=== PATIENT | male | born 2000 | race Caucasian/White ===

== ENCOUNTER 2021-01-13 10:46 | Emergency (ER) | payer SELFPAY ==
[~2021-01-13] VITALS: Ht 190 cm; Wt 81.0 kg
[2021-01-13 10:50] VITALS: BP 148/86
[2021-01-13] MEDS ORDERED: IBUP-1780 PO (11:07)
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
== END 2021-01-13 11:12 | disposition home or self-care (01) ==
LOC: ER FS 10:49
DX: S06.0X1A Concussion with loss of consciousness of 30 minutes or less, initial encounter (principal); S00.03XA Contusion of scalp, initial encounter; F17.290 Nicotine dependence, other tobacco product, uncomplicated; Y08.02XA Assault by strike by baseball bat, initial encounter
CPT/HCPCS: 99282

== ENCOUNTER 2022-01-19 09:57 | Day surgery (SDC) | payer SELFPAY ==
[~2022-01-19] VITALS: Ht 188 cm; Wt 100.9 kg
[2022-01-19] VITALS (15 sets, daily range): BP systolic 116–158; BP diastolic 65–92
[~2022-01-19 09:57] MED LIST: IBUP-1780 PO
[2022-01-19 10:18] LABS: BASOPHILS # (AUTO) 0.1 10^3/uL (0.0-0.1); BASOPHILS % (AUTO) 0 % (0-10); EOSINOPHILS # (AUTO) 0.2 10^3/uL (0.0-0.3); EOSINOPHILS % (AUTO) 1 % (0-10); HEMATOCRIT 44 % (40-54); HEMOGLOBIN 15.9 g/dL (13.3-17.7); LYMPHOCYTES # (AUTO) 3.6 10^3/uL (1.0-4.0); LYMPHOCYTES % (AUTO) 22 % (12-44); MEAN CORPUSCULAR HEMOGLOBIN 31 pg (25-34); MEAN CORPUSCULAR HGB CONC 36 g/dL (32-36); MEAN CORPUSCULAR VOLUME 85 fL (80-99); MEAN PLATELET VOLUME 9.8 fL (9.0-12.2); MONOCYTES # (AUTO) 1.5 10^3/uL (0.0-1.0); MONOCYTES % (AUTO) 9 % (0-12); NEUTROPHILS # (AUTO) 11.3 10^3/uL (1.8-7.8); NEUTROPHILS % (AUTO) 67 % (42-75); PLATELET COUNT 307 10^3/uL (130-400); WHITE BLOOD COUNT 16.7 10^3/uL (4.3-11.0)
[2022-01-19] MEDS ORDERED: FAMOTIDINE 20MG/2ML IV (PEPCID) IVP ONE (10:30)
[2022-01-19] MEDS ORDERED: ONDANSETRON 4 MG/2 ML (SDV) Z0FRAN IVP ONE (10:30)
[2022-01-19] MEDS ORDERED: ANTACID SUSP 30 ML UDC (MYLANTA) PO ONE (10:30)
[2022-01-19 10:47] LABS: SODIUM 139 MMOL/L (135-145)
[2022-01-19 10:48] LABS: ALANINE AMINOTRANSFERASE 52 U/L (0-55); ALBUMIN 4.9 GM/DL (3.2-4.5); ALKALINE PHOSPHATASE 111 U/L (40-136); BILIRUBIN,TOTAL 0.7 MG/DL (0.1-1.0); BUN/CREATININE RATIO 12; CALCIUM 9.6 MG/DL (8.5-10.1); CARBON DIOXIDE 25 MMOL/L (21-32); CHLORIDE 102 MMOL/L (98-107); CREATININE SERUM 0.93 MG/DL (0.60-1.30); GFR ESTIMATED 119; GLUCOSE 102 MG/DL (70-105); LIPASE 12 U/L (8-78)
[2022-01-19 10:49] LABS: TOTAL PROTEIN 8.1 GM/DL (6.4-8.2)
[2022-01-19 11:04] LABS: BAND NEUTROPHILS 3 %; BASOPHILS % (MANUAL) 1 %; EOSINOPHILS % (MANUAL) 2 %; LYMPHOCYTES % (MANUAL) 17 %; MONOCYTES % (MANUAL) 3 %; NEUTROPHILS % (MANUAL) 69 %; REACTIVE LYMPHOCYTES 5 %
[2022-01-19 11:05] LABS: PLATELET ESTIMATE NORMAL; RBC MORPH NORMAL
[2022-01-19] MEDS ORDERED: NS 100 ML (IVPB) BAG IV ONE (11:15)
[2022-01-19] MEDS ORDERED: IOHEXOL 350 MG/ML 100 ML (OMNIPAQUE 350) VIAL IV ONE (11:15)
[2022-01-19] MEDS ORDERED: CATHETER FLUSH 10 ML SYR IV PRN (11:15)
[2022-01-19] MEDS ORDERED: HOLD METFORMIN - RECEIVED CONTRAST 20 ML VIAL IV SCH (11:15)
[2022-01-19] MEDS ORDERED: morphine INJ 10 MG/ML 1ML (SYR OR VIAL) IVP STA (11:21)
--- NOTE | 2022-01-19 11:35 | Diagnostic Imaging Report ---
PROCEDURE: CT abdomen and pelvis with contrast. TECHNIQUE: Multiple contiguous axial images were obtained through the abdomen and pelvis after administration of intravenous contrast. Auto Exposure Controls were utilized during the CT exam to meet ALARA standards for radiation dose reduction. All CT scans use one or more of the following dose optimizing techniques: automated exposure control, MA and/or KvP adjustment based on patient size and exam type or iterative reconstruction. INDICATION: Epigastric pain last night. Intermittent constipation. Prior hernia repair. EXAMINATION: CT abdomen and pelvis with contrast 01/19/2022 FINDINGS: There is minimal atelectasis in the medial aspect of the right middle lobe. Remaining visualized lung bases clear. There is diffuse fatty infiltration throughout the liver which is otherwise unremarkable. The spleen appears normal. The pancreas, adrenal glands and gallbladder unremarkable. The appendix is diffusely enlarged measuring up to 15 mm in thickness with surrounding fat stranding consistent with acute appendicitis. There is no adjacent free air or abscess. The colon is diffusely decompressed with wall thickening and fatty change within the wall consistent with chronic colitis. There is no ascites or free air. There is no acute osseous abnormality. IMPRESSION: 1. Findings consistent with acute appendicitis without evidence for perforation. 2. Changes consistent with chronic colitis. 3. Hepatic steatosis. Dictated by: Dictated on workstation # [id number]
--- NOTE | 2022-01-19 12:12 | ED Abdominal Pain ---
General Chief Complaint: Abdominal/GI Problems Stated Complaint: EPIGASTRIC PAIN; NAUSEA Nursing Triage Note: -pt. reports epigastric sharp pain. onset last noc. denies n/v. Source of Information: Patient Exam Limitations: No Limitations History of Present Illness Date Seen by Provider: Jan 19, 2022 Time Seen by Provider: 10:00 Initial Comments Patient is a 21-year-old male who presents with intermittent abdominal pain for the past 30 days with most recent episode beginning last night. Patient reports nausea without vomiting. He reports constipation. Abdominal pain is currently epigastric to periumbilical and is rated moderate to severe. It is worse with palpation. Patient reports loss of appetite he has not had anything to eat since bedtime last night. He denies fever chills, sweats. Flank pain, urinary frequency urgency dysuria, diarrhea. No history of kidney stones. Previos inguinal hernia repair. Patient smokes half pack daily and drinks 6-12 beers daily. Timing/Duration: 12-24 Hours Severity/Quality: Moderate Location: Other Radiation: Other Activities at Onset: Other Modifying Factors: Improves With Other Allergies and Home Medications Allergies Coded Allergies: No Known Allergies (Verified Allergy, Unknown, 01/19/22) Patient Home Medication List Home Medication List Reviewed: Yes Ibuprofen (Ibuprofen) 800 Mg Tablet, 800 MG PO Q8H PRN for PAIN Prescribed by: KAREEM DIALLO on 01/13/21 1107 Review of Systems Review of Systems Constitutional: no symptoms reported, see HPI EENTM: See HPI Respiratory: See HPI Cardiovascular: See HPI Gastrointestinal: See HPI Genitourinary: See HPI Musculoskeletal: see HPI Skin: see HPI Psychiatric/Neurological: See HPI Endocrine: See HPI Hematologic/Lymphatic: See HPI All Other Systems Reviewed Negative Unless Noted: Yes Past Pewraip-Xufsli-Jjeotr Hx Patient Social History Tobacco Use?: No Seasonal Allergies Seasonal Allergies: No Past Medical History Surgeries: Yes Appendectomy, Ear Surgery, Eye Surgery, Orthopedic Respiratory: No Cardiac: No Neurological: No Genitourinary: No Gastrointestinal: No Musculoskeletal: No Endocrine: No HEENT: No Cancer: No Psychosocial: No Integumentary: No Blood Disorders: No Physical Exam Vital Signs Vital Signs - First Documented 01/19/22 01/19/22 10:00 11:24 Temp 36.2 Pulse 74 Resp 18 B/P (MAP) 157/96 (116) Pulse Ox 99 O2 Delivery Room Air Capillary Refill : Less Than 3 Seconds Height/Weight/BMI Height: '" Weight: lbs. oz. kg; 28.00 BMI Method: General Appearance: WD/WN, no apparent distress HEENT: PERRL/EOMI, normal ENT inspection, pharynx normal Neck: non-tender, full range of motion Respiratory: lungs clear Cardiovascular: normal peripheral pulses, regular rate, rhythm Gastrointestinal: soft, tenderness (Epigastric/periumbilical pain/tenderness.), spleenomegaly Extremities: normal range of motion, non-tender Back: normal inspection, no CVA tenderness Neurologic/Psychiatric: alert, oriented x 3 Skin: normal color Progress/Results/Core Measures Results/Orders Lab Results Laboratory Tests Test 01/19/22 10:09 Range/Units White Blood Count 16.7 H 4.3-11.0 10^3/uL Red Blood Count 5.15 4.30-5.52 10^6/uL Hemoglobin 15.9 13.3-17.7 g/dL Hematocrit 44 40-54 % Mean Corpuscular Volume 85 80-99 fL Mean Corpuscular Hemoglobin 31 25-34 pg Mean Corpuscular Hemoglobin Concent 36 32-36 g/dL Red Cell Distribution Width 11.7 10.0-14.5 % Platelet Count 307 130-400 10^3/uL Mean Platelet Volume 9.8 9.0-12.2 fL Immature Granulocyte % (Auto) 0 % Neutrophils (%) (Auto) 67 42-75 % Lymphocytes (%) (Auto) 22 12-44 % Monocytes (%) (Auto) 9 0-12 % Eosinophils (%) (Auto) 1 0-10 % Basophils (%) (Auto) 0 0-10 % Neutrophils # (Auto) 11.3 H 1.8-7.8 10^3/uL Lymphocytes # (Auto) 3.6 1.0-4.0 10^3/uL Monocytes # (Auto) 1.5 H 0.0-1.0 10^3/uL Eosinophils # (Auto) 0.2 0.0-0.3 10^3/uL Basophils # (Auto) 0.1 0.0-0.1 10^3/uL Immature Granulocyte # (Auto) 0.1 0.0-0.1 10^3/uL Neutrophils % (Manual) 69 % Lymphocytes % (Manual) 17 % Monocytes % (Manual) 3 % Eosinophils % (Manual) 2 % Basophils % (Manual) 1 % Band Neutrophils 3 % Reactive Lymphocytes 5 % Platelet Estimate NORMAL Blood Morphology Comment NORMAL Sodium Level 139 135-145 MMOL/L Potassium Level 4.0 3.6-5.0 MMOL/L Chloride Level 102 98-107 MMOL/L Carbon Dioxide Level 25 21-32 MMOL/L Anion Gap 12 5-14 MMOL/L Blood Urea Nitrogen 11 7-18 MG/DL Creatinine 0.93 0.60-1.30 MG/DL Estimat Glomerular Filtration Rate 119 BUN/Creatinine Ratio 12 Glucose Level 102 70-105 MG/DL Calcium Level 9.6 8.5-10.1 MG/DL Corrected Calcium 8.5-10.1 MG/DL Total Bilirubin 0.7 0.1-1.0 MG/DL Aspartate Amino Transf (AST/SGOT) 26 5-34 U/L Alanine Aminotransferase (ALT/SGPT) 52 0-55 U/L Alkaline Phosphatase 111 40-136 U/L Total Protein 8.1 6.4-8.2 GM/DL Albumin 4.9 H 3.2-4.5 GM/DL Lipase 12 8-78 U/L My Orders Orders - FRANSISCO CASTILLO DO Cbc With Automated Diff (01/19/22 10:09) Comprehensive Metabolic Panel (01/19/22 10:09) Lipase (01/19/22 10:09) Ua Culture If Indicated (01/19/22 10:09) Famotidine Injection (Pepcid Injection) (01/19/22 10:30) Ondansetron Injection (Zofran Injectio (01/19/22 10:30) Antacid Suspension (Mylanta Suspension (01/19/22 10:30) Manual Differential (01/19/22 10:09) Ct Abdomen/Pelvis W (01/19/22 11:00) Iohexol Injection (Omnipaque 350 Mg/Ml 1 (01/19/22 11:15) Received Contrast (Hold Metformin- Contr (01/19/22 11:15) Sodium Chloride Flush (Catheter Flush Sy (01/19/22 11:15) Ns (Ivpb) (Sodium Chloride 0.9% Ivpb Bag (01/19/22 11:15) Morphine Injection (Morphine Injection (01/19/22 11:21) Ketorolac Injection (Toradol Injection) (01/19/22 12:15) Medications Given in ED Current Medications Medications Dose Ordered Sig/Richard Route Start Time Stop Time Status Last Admin Dose Admin Al Hydrox/Mg Hydrox/Simethicone 30 ml ONCE ONCE PO 01/19/22 10:30 01/19/22 10:31 DC 01/19/22 10:30 30 ML Famotidine 20 mg ONCE ONCE IVP 01/19/22 10:30 01/19/22 10:31 DC 01/19/22 10:30 20 MG Iohexol 100 ml ONCE ONCE IV 01/19/22 11:15 01/19/22 11:16 DC 01/19/22 11:17 100 ML Ondansetron HCl 4 mg ONCE ONCE IVP 01/19/22 10:30 01/19/22 10:31 DC 01/19/22 10:30 4 MG Sodium Chloride 10 ml NEEDED PRN IV 01/19/22 11:15 01/19/22 11:17 10 ML Sodium Chloride 100 ml ONCE ONCE IV 01/19/22 11:15 01/19/22 11:16 DC 01/19/22 11:17 100 ML Vital Signs/I&O 01/19/22 01/19/22 01/19/22 10:00 11:24 12:02 Temp 36.2 36.2 36.2 Pulse 74 75 74 Resp 18 18 18 B/P (MAP) 157/96 (116) 144/93 148/86 Pulse Ox 99 O2 Delivery Room Air Room Air Blood Pressure Mean: 106 Departure Communication (Admissions) CT abdomen pelvis: Chronic colitis with acute appendicitis Case discussion including CT and labs reviewed in detail with Dr. Cullen on-call for general surgery who requests the patient be discharged from the emergency department and drive straight to the [facility] outpatient surgical center. No antibiotics to be given at this time. I did offer ambulance transfer which the patient declined. Patient is instructed not to eat or drink and his significant other confirms that she is going to drive directly to the surgical center Impression Primary Impression: Acute appendicitis Additional Impression: Chronic colitis Disposition: 01 HOME, SELF-CARE Condition: Unchanged Departure-Patient Inst. Decision time for Depature: 12:14 Referrals: ROSITA SOLORIO MD (PCP) Primary Care Physician Patient Instructions: Appendicitis in Adults Add. Discharge Instructions: You were evaluated in the emergency department and diagnosed with appendicitis. This requires prompt surgical care otherwise you are at risk of perforation, abscess and other surgery complications. It is important that you drive directly to the outpatient surgical center at [facility] where Dr Cullen will perform surgery this afternoon. Do not stop to eat or drink along the way. If you develop difficulty with transportation, call 911 request transfer to [facility] All discharge instructions reviewed with patient and/or family. Voiced understanding. FRANSISCO CASTILLO DO Jan 19, 2022 12:12
[2022-01-19] MEDS ORDERED: KETOROLAC 30 MG/ML VIAL IVP ONE (12:15)
[2022-01-19] MEDS: LACTATED RINGERS 1,000 ML IV PRN ×2 (14:10→15:11)
[2022-01-19] MEDS ORDERED: BUP/EPI 0.5% 1:200,000 (SENSORCAINE) 30 ML VIAL ONE (14:12)
[2022-01-19] MEDS ORDERED: fentaNYL INJ 100 MCG/2 ML AMP ONE (14:29)
[2022-01-19] MEDS ORDERED: ONDANSETRON 4 MG/2 ML (SDV) Z0FRAN ONE (14:29)
[2022-01-19] MEDS ORDERED: NEOSTIGMINE 3 MG/3 ML VIAL ONE (14:29)
[2022-01-19] MEDS ORDERED: LIDOCAINE PF 2% 5 ML (XYLOCAINE) VIAL ONE (14:29)
[2022-01-19] MEDS ORDERED: MIDAZOLAM 2 MG/2 ML (VERSED) VIAL ONE (14:29)
[2022-01-19] MEDS ORDERED: ROCURONIUM 50 MG/5 ML (ZEMURON) VIAL IV ONE (14:29)
[2022-01-19] MEDS ORDERED: GLYCOPYRROLATE 0.2 MG/ML (ROBINUL) 2 ML VIAL ONE (14:29)
[2022-01-19] MEDS ORDERED: proPOfol 200 MG/20 ML (DIPRIVAN) VIAL IV ONE (14:29)
[2022-01-19] MEDS ORDERED: ceFAZolin 2 GM/50 ML (PRE-MIXED) IV ONE (14:30)
--- NOTE | 2022-01-19 14:37 | Consultation - Surgery ---
History of Present Illness History of Present Illness Patient Consulted On(hawk/time) 01/19/22 14:31 Time Seen by Provider: 14:01 History of Present Illness Surgery asked to consult regarding appendicitis. HPI per ED: Patient is a 21-year-old male who presents with intermittent abdominal pain for the past 30 days with most recent episode beginning last night. Patient reports nausea without vomiting. He reports constipation. Abdominal pain is currently epigastric to periumbilical and is rated moderate to severe. It is worse with palpation. Patient reports loss of appetite he has not had anything to eat since bedtime last night. He denies fever chills, sweats. Flank pain, urinary frequency urgency dysuria, diarrhea. No history of kidney stones. Previos inguinal hernia repair. Patient smokes half pack daily and drinks 6-12 beers daily. Timing/Duration: 12-24 Hours Severity/Quality: Moderate When I spoke to pt he stated the pain was 10 out of 10 until they gave him meds. He described a sharp stabbing pain that would not go away. He states it was across upper abdomen last night but now it is all in RLQ. He denied N/V. Allergies and Home Medications Allergies Coded Allergies: No Known Allergies (Verified Allergy, Unknown, 01/19/22) Patient Home Medication List Home Medication List Reviewed: Yes Ibuprofen (Ibuprofen) 800 Mg Tablet, 800 MG PO Q8H PRN for PAIN Prescribed by: KAREEM DAILLO on 01/13/21 1107 Past Oatowvn-Cprogo-Shzqjy Hx Patient Social History Smoking Status: Current Everyday Smoker (1/2 ppd) Type Used: Electronic/Vapor 2nd Hand Smoke Exposure: No Recent Hopitalizations: No Alcohol Use?: Yes Have you traveled recently?: No Seasonal Allergies Seasonal Allergies: No Surgeries History of Surgeries: Yes Surgeries: Appendectomy, Ear Surgery, Eye Surgery, Orthopedic Respiratory History of Respiratory Disorde: No Cardiovascular History of Cardiac Disorders: No Neurological History of Neurological Disord: No Genitourinary History of Genitourinary Disor: No Gastrointestinal History of Gastrointestinal Di: No Musculoskeletal History of Musculoskeletal Dis: No Endocrine History of Endocrine Disorders: No HEENT History of HEENT Disorders: No Cancer History of Cancer: No Psychosocial History of Psychiatric Problem: No Integumentary History of Skin or Integumenta: No Blood Transfusions History of Blood Disorders: No Family Medical History Significant Family History: Other Conditions/Hx (Mother denied any DM, HTN) Review of Systems-General Constitutional: No chills, No diaphoresis EENTM: No blurred vision, No mouth swelling, No epistaxis, No throat swelling Respiratory: No cough, No dyspnea on exertion, No short of breath Cardiovascular: No chest pain, No palpitations Gastrointestinal: abdominal pain (RLQ); No jaundice, No nausea, No vomiting Genitourinary: No dysuria, No frequency, No hematuria Musculoskeletal: No joint swelling, No muscle pain, No muscle stiffness Skin: No change in color, No change in hair/nails Psychiatric/Neurological: Denies Anxiety, Denies Depressed, Denies Seizure, Denies Tremors Physical Exam-General Problems Physical Exam Vital Signs Vital Signs - First Documented 01/19/22 01/19/22 10:00 11:24 Temp 36.2 Pulse 74 Resp 18 B/P (MAP) 157/96 (116) Pulse Ox 99 O2 Delivery Room Air Capillary Refill : Less Than 3 Seconds General Appearance: WD/WN, mild distress (secondary to pain) Eyes: Bilateral Eye PERRL, Bilateral Eye EOMI HEENT: pharynx normal; No scleral icterus (R), No scleral icterus (L) Neck: non-tender, full range of motion, supple, normal inspection Respiratory: chest non-tender, lungs clear, normal breath sounds, no respiratory distress, no accessory muscle use Cardiovascular: regular rate, rhythm, no murmur Gastrointestinal: soft, no organomegaly, distended, guarding (voluntary), tenderness (diffusely but more in RLQ even with mild palpation) Back: no CVA tenderness, no vertebral tenderness Extremities: non-tender, normal inspection, no pedal edema, no calf tenderness 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, no motor/sensory deficits, alert, normal mood/affect, oriented x 3 Skin: normal color, warm/dry Lymphatic: no adenopathy (neck, axilla or groin) Data Review Labs Laboratory Tests 01/19/22 10:09: White Blood Count 16.7H, Red Blood Count 5.15, Hemoglobin 15.9, Hematocrit 44, Mean Corpuscular Volume 85, Mean Corpuscular Hemoglobin 31, Mean Corpuscular Hemoglobin Concent 36, Red Cell Distribution Width 11.7, Platelet Count 307, Mean Platelet Volume 9.8, Immature Granulocyte % (Auto) 0, Neutrophils (%) (Auto) 67, Lymphocytes (%) (Auto) 22, Monocytes (%) (Auto) 9, Eosinophils (%) (Auto) 1, Basophils (%) (Auto) 0, Neutrophils # (Auto) 11.3H, Lymphocytes # (Auto) 3.6, Monocytes # (Auto) 1.5H, Eosinophils # (Auto) 0.2, Basophils # (Auto) 0.1, Immature Granulocyte # (Auto) 0.1, Neutrophils % (Manual) 69, Lymphocytes % (Manual) 17, Monocytes % (Manual) 3, Eosinophils % (Manual) 2, Basophils % (Manual) 1, Band Neutrophils 3, Reactive Lymphocytes 5, Platelet Estimate NORMAL, Blood Morphology Comment NORMAL, Sodium Level 139, Potassium Level 4.0, Chloride Level 102, Carbon Dioxide Level 25, Anion Gap 12, Blood Urea Nitrogen 11, Creatinine 0.93, Estimat Glomerular Filtration Rate 119, BUN/Creatinine Ratio 12, Glucose Level 102, Calcium Level 9.6, Corrected Calcium , Total Bilirubin 0.7, Aspartate Amino Transf (AST/SGOT) 26, Alanine Aminotransferase (ALT/SGPT) 52, Alkaline Phosphatase 111, Total Protein 8.1, Albumin 4.9H, Lipase 12 Radiology Date of Exam:01/19/22 CT ABDOMEN/PELVIS W PROCEDURE: CT abdomen and pelvis with contrast. TECHNIQUE: Multiple contiguous axial images were obtained through the abdomen and pelvis after administration of intravenous contrast. Auto Exposure Controls were utilized during the CT exam to meet ALARA standards for radiation dose reduction. All CT scans use one or more of the following dose optimizing techniques: automated exposure control, MA and/or KvP adjustment based on patient size and exam type or iterative reconstruction. INDICATION: Epigastric pain last night. Intermittent constipation. Prior hernia repair. EXAMINATION: CT abdomen and pelvis with contrast 01/19/2022 FINDINGS: There is minimal atelectasis in the medial aspect of the right middle lobe. Remaining visualized lung bases clear. There is diffuse fatty infiltration throughout the liver which is otherwise unremarkable. The spleen appears normal. The pancreas, adrenal glands and gallbladder unremarkable. The appendix is diffusely enlarged measuring up to 15 mm in thickness with surrounding fat stranding consistent with acute appendicitis. There is no adjacent free air or abscess. The colon is diffusely decompressed with wall thickening and fatty change within the wall consistent with chronic colitis. There is no ascites or free air. There is no acute osseous abnormality. IMPRESSION: 1. Findings consistent with acute appendicitis without evidence for perforation. 2. Changes consistent with chronic colitis. 3. Hepatic steatosis. Dictated on workstation # [id number] Dict: 01/19/22 1125 Trans: 01/19/22 1134 [id number] Interpreted by: YAA CHRISTINE MD Assessment/Plan Assessment/Plan Assessment/Plan Acute Appendicitis I reviewed the CT myself and agree with Radiology reading, the appendix is very dilated and large. Pt has acute appendicitis and needs to have it removed. I discussed the procedure with pt and his family; risks and complications not limited to pain, bleeding, infection, scar, damage to bowel and need for further procedure. He will get a consent, IV fluids, IV ABX dispersion mixer to OR, pain meds as needed. He wants to have the surgery done. All questions answered to pt and family's satisfaction. If it is not perforated he will probably go home tonight. ABDOUL ARAGON DO Jan 19, 2022 14:37
[2022-01-19] MEDS ORDERED: HYDROmorphone 2 MG/ML VIAL (DILAUDID) ONE (15:16)
[2022-01-19] MEDS ORDERED: SEVOFLURANE (ULTANE) 15 ML INHAL SOLN ONE (15:16)
--- NOTE | 2022-01-19 15:22 | Progress Note-Post Operative ---
Post-Operative Progess Note Surgeon (s)/Advertising Teacher (s) Surgeon ABDOUL ARAGON DO Advertising Teacher: none Pre-Operative Diagnosis ACUTE APPENDICITIS Post-Operative Diagnosis same pending path Procedure & Operative Findings Date of Procedure 01/19/22 Procedure Performed/Findings PROCEDURE: Laparoscopic appendectomy. COMPLICATIONS: None. INDICATIONS: The patient is a 21 year old male who has been having right lower quadrant abdominal pain. Patient's exam consistent with appendicitis. I discussed risk and benefits of laparoscopic appendectomy and all indicated procedures with the possibility being a normal appendix. The patient understands the risks and benefits and wishes to proceed. Consent was signed on the chart. DESCRIPTION OF PROCEDURE: The patient was taken to the operating suite, prepped and draped in a sterile fashion. Timeout was performed. Local anesthetic was infiltrated just above the umbilicus and 11-blade scalpel was used to make a skin incision. Cautery was used to dissect down to the fascia and scored. Kochers were used to grasp and elevate it and the abdomen was then entered. A 0 Vicryl was placed in a [id number] fashion for closure at the end of the case. The balloon trocar was inserted into the abdomen and pneumoperitoneum was achieved. Under direct visualization of the laparoscope, a 5 mm trocar was placed in the suprapubic region and a 5 mm trocar was placed in the left lower quadrant. Appendix was located, it was very long, thickened and firm. Used the Ligasure to come across the mesoappendix in a stepwise fashion (clamping, coagulating, cutting) until I was at the base of the appendix. Once at the base an Endo-ROHITH 2.5 stapler was then fired across the base of the appendix. It was then placed in an Endobag and removed through the 12 mm trocar site. The abdomen was then irrigated and suctioned. No other pathology noted. The abdomen was then desufflated and the trocars were removed. The 0 Vicryl placed at the beginning of the case was then tied closing the 12 mm fascial defect. The skin was then closed using 4-0 Monocryl in a subcuticular fashion. The abdomen was then washed and dried and Skin Affix was placed over the incisions. The patient tolerated the procedure well without any complications and was taken to the recovery room in stable condition. Anesthesia Type GET Estimated Blood Loss Estimated blood loss (mL): scant Specimens/Packing Specimens Removed appendix ABDOUL ARAGON DO Jan 19, 2022 15:22
[2022-01-19] MEDS ORDERED: ACHYD1T PO (15:23)
--- NOTE | 2022-01-19 15:25 | Discharge Inst-Surgical ---
Discharge Inst-Surgical Depart Medication/Instructions New, Converted or Re-Newed RX: Transmitted to Pharmacy Patient Instructions Follow up Appt: Make appointment for 1 week. [phone] Instructions: No lifting greater than 20 pounds. No strenuous activity. May shower in 24 hours, no tub bath or soaking. Use incentive spirometer at home as directed. No Smoking Skin/Wound Care: May remove bandages in am. You need to leave the Dermabond on incision it will fall off on it's own. Symptoms to Report: Appetite Changes, Extremity Discoloration, Numbness/Tingling, Swelling Increased, Bleeding Excessive, Eyesight Changes, Pain Increased, Urine Color Change, Constipation(Persistent), Fever over 101 degree F, Pain/Pressure in chest, Urinating Difficulty, Cough Up/Vomit Blood, Heart Beat Irreg/Pounding, Pain/Pressure in jaw, Cramps in feet or legs, Lightheadedness, Pain/Pressure in shoulder, Diarrhea(Persistent), Memory Changes Suddenly, Questions/Concerns, Weight gain consecutive days, Dizziness/Fainting, Nausea/Vomiting, Shortness of Breath, Weight gain over 2 pounds If questions or concerns contact your physician Or seek help at emergency department. Activity Activity as Tolerated: Yes Activity Instructions: Avoid Stress to Incision Driving Instructions: No Driving/Refer to Dr. Noe Discharge Diet: No Restrictions Diet After 24 Hours: Clear Liquid if Nauseous If Any Problems/Questions/Issu: Contact Your Physician, Go to Emergency Room Skin/Wound Care Infection Signs and Symptoms: Increased Redness, Foul Odor of Wound, Increased Drainage, Skin Itchy or Has a Rash, Increased Swelling, Temperature Above 101 F Wound Care Comment: heating pad to shoulder or neck tonight for pain Bathing Instructions: Shower Stitches/[place]/Dermabond Dis: Dermabond Ice Pack: Ice On and Off Site ABDOUL ARAGON DO Jan 19, 2022 15:25
[2022-01-19] MEDS ORDERED: HYDROmorphone 2 MG/ML VIAL (DILAUDID) IV ONE (16:00)
[2022-01-19] MEDS ORDERED: morphine INJ 10 MG/ML 1ML (SYR OR VIAL) IVP ONE (16:00)
--- NOTE | 2022-01-19 16:35 | Anesthesia-General Post-Op ---
General Patient Condition Mental Status/LOC: Same as Preop Cardiovascular: Satisfactory Nausea/Vomiting: Absent Respiratory: Satisfactory Pain: Controlled Complications: Absent Post Op Complications Complications None Follow Up Care/Instructions Patient Instructions None needed. Anesthesia/Patient Condition Patient Condition Patient is doing well, no complaints, stable vital signs, no apparent adverse anesthesia problems. No complications reported per nursing. DYLON MARQUIS DO Jan 19, 2022 16:35
[2022-01-19] MEDS: ONDANSETRON 4 MG/2 ML (SDV) Z0FRAN IVP PRN (16:48)
== END 2022-01-19 18:25 | disposition home or self-care (01) ==
LOC: EDUNIT# 09:57 → ER FS 09:58 → SDC 13:39 → 4TH 16:20 → SDC 18:25
PROVIDERS: ATTEND Surgery
DX: K35.80 Unspecified acute appendicitis (principal); F17.210 Nicotine dependence, cigarettes, uncomplicated; F17.290 Nicotine dependence, other tobacco product, uncomplicated; K52.9 Noninfective gastroenteritis and colitis, unspecified; Z28.310 Unvaccinated for COVID-19
CPT/HCPCS: 36415; 74177; 80053; 83690; 85007; 85027; 87081; 96374; 96375; Q9967

== ENCOUNTER 2022-09-18 21:00 | Emergency (ER) | payer OTHER ==
[~2022-09-18] VITALS: Ht 190.5 cm; Wt 103.9 kg
[~2022-09-18 21:00] MED LIST changes: +ACHYD1T PO
[2022-09-18] MEDS ORDERED: NS IV 1000 ML 1,000 ML IV STA (21:09)
[2022-09-18] MEDS ORDERED: ALPRAZolam 0.25 MG (XANAX) TAB PO STA (21:09)
[2022-09-18] MEDS ORDERED: hydrALAZINE (APESOLINE) 20 MG/ML VIAL IV STA (21:09)
[2022-09-18 21:18] LABS: BASOPHILS % (AUTO) 0 % (0-10); EOSINOPHILS # (AUTO) 0.1 10^3/uL (0.0-0.3); EOSINOPHILS % (AUTO) 1 % (0-10); HEMATOCRIT 44 % (40-54); HEMOGLOBIN 16.1 g/dL (13.3-17.7); LYMPHOCYTES # (AUTO) 3.9 10^3/uL (1.0-4.0); LYMPHOCYTES % (AUTO) 33 % (12-44); MEAN CORPUSCULAR HEMOGLOBIN 31 pg (25-34); MEAN CORPUSCULAR HGB CONC 37 g/dL (32-36); MEAN CORPUSCULAR VOLUME 84 fL (80-99); MEAN PLATELET VOLUME 9.6 fL (9.0-12.2); MONOCYTES % (AUTO) 9 % (0-12); NEUTROPHILS # (AUTO) 6.6 10^3/uL (1.8-7.8); NEUTROPHILS % (AUTO) 57 % (42-75); PLATELET COUNT 322 10^3/uL (130-400); WHITE BLOOD COUNT 11.6 10^3/uL (4.3-11.0)
[2022-09-18 21:26] LABS: BILIRUBIN,URINE NEGATIVE (NEGATIVE); CLARITY,URINE CLEAR; COLOR,URINE YELLOW; GLUCOSE, URINE (UA) NEGATIVE (NEGATIVE); KETONES,URINE NEGATIVE (NEGATIVE); LEUKOCYTE ESTERASE ,URINE NEGATIVE (NEGATIVE); NITRITE,URINE NEGATIVE (NEGATIVE); PH,URINE 6.5 (5-9); PROTEIN,URINE NEGATIVE (NEGATIVE)
[2022-09-18 21:29] LABS: BACTERIA,URINE NEGATIVE /HPF; WBC,URINE RARE /HPF
[2022-09-18 21:30] LABS: PROTHROMBIN TIME PATIENT 13.2 SEC (12.2-14.7)
--- NOTE | 2022-09-18 21:31 | Diagnostic Imaging Report ---
INDICATION: Chest pain, high blood pressure. TECHNIQUE: Single view chest 9:12 PM. CORRELATION STUDY: None. FINDINGS: Limited depth of inspiration resulting in accentuation of the heart size, mediastinum and vasculature, likely within normal limits. The lungs are clear with no consolidating infiltrate. There is no significant effusion or pneumothorax. IMPRESSION: Negative appearing single view chest. Dictated by: Dictated on workstation # [id number]
[2022-09-18 21:37] LABS: AMPHETAMINE SCREEN, URINE NEGATIVE (NEGATIVE); BARBITURATE SCREEN URINE NEGATIVE (NEGATIVE); BENZODIAZEPINES SCREEN URINE NEGATIVE (NEGATIVE); CANNABINOID SCREEN, URINE NEGATIVE (NEGATIVE); COCAINE SCREEN URINE NEGATIVE (NEGATIVE); METHADONE STAT NEGATIVE (NEGATIVE); OPIATE SCREEN URINE NEGATIVE (NEGATIVE); OXYCODONE STAT NEGATIVE (NEGATIVE); PROPOXYPHENE STAT NEGATIVE (NEGATIVE); TRICYCLIC ANTIDEPRESSANTS SCRE NEGATIVE (NEGATIVE)
[2022-09-18 21:38] LABS: ALANINE AMINOTRANSFERASE 69 U/L (0-55); ALBUMIN 5.1 GM/DL (3.2-4.5); ALKALINE PHOSPHATASE 107 U/L (40-136); BILIRUBIN,TOTAL 0.4 MG/DL (0.1-1.0); BUN/CREATININE RATIO 11; CALCIUM 9.6 MG/DL (8.5-10.1); CARBON DIOXIDE 24 MMOL/L (21-32); CHLORIDE 102 MMOL/L (98-107); CREATININE SERUM 0.82 MG/DL (0.60-1.30); GFR ESTIMATED 127; GLUCOSE 104 MG/DL (70-105); LIPASE 16 U/L (8-78); POTASSIUM 3.6 MMOL/L (3.6-5.0); SODIUM 141 MMOL/L (135-145); TOTAL PROTEIN 8.5 GM/DL (6.4-8.2)
--- NOTE | 2022-09-18 21:44 | ED Chest Pain ---
General Chief Complaint: Chest Pain Stated Complaint: CHEST PAIN Source: patient History of Present Illness Date Seen by Provider: Sep 18, 2022 Time Seen by Provider: 21:02 Initial Comments 21-year-old male presenting with complaints of elevated blood pressure and pressure in his chest for the last 2 hours. He states he has had similar symptoms off and on for the last 3 to 4 months and feels that it has been going on since he had his appendix out. Upon review of the surgical notes from Dr. Aragon he had a surgery for appendicitis on January 19, 2022. At that time his blood pressure was slightly elevated with the pain but otherwise he has been consistently in the 1 30-1 40 systolic range. He states that he had a family member take his blood pressure at home because he was not feeling well and had the chest pain and they had a highly elevated blood pressure over 170 for the systolic pressure. He was started on an anxiety medicine approximately a month ago by Dr. Solorio his primary care provider. He is taking buspirone for anxiety. He also drinks alcohol usually at least a sixpack of beer a day. He stated that he felt a little dizzy and lightheaded but denies headache, blurred vision, numbness or tingling in his arms or legs. He feels like he has some mild shortness of breath with the chest pain. He denies having any epigastric or abdominal pain, nausea or vomiting. Timing/Duration: 1-3 hours (Bhaskar's episode has been constant for over 2 hours while he was watching the [employer] game) Severity/Quality: moderate, pressure Location: substernal Radiation: no radiation Activities at Onset: emotional stress (watching [employer] playoff game) Prior CP/Workup: no prior cardiac workup Modifying Factors: improves with other (anxiety medicine from Dr. Solorio helps some) ASA po CARE INFORMATION ASSOCIATE: No NTG SL CARE INFORMATION ASSOCIATE: No Associated Symptoms: No abdominal pain, No back pain, No diaphoresis; dizziness; No edema, No fatigue, No fever/chills, No headache, No heartburn, No nausea/vomiting, No rash, No swelling/lump in chest, No syncope, No weakness Allergies and Home Medications Allergies Coded Allergies: No Known Allergies (Verified Allergy, Unknown, 01/19/22) Patient Home Medication List Home Medication List Reviewed: Yes Hydrocodone Bit/Acetaminophen (HYDROcodone/APAP 10/325 TABLET) 1 Ea Tab, 1 TAB PO Q6H Prescribed by: ABDOUL ARAGON on 01/19/22 1523 Review of Systems Review of Systems Constitutional: see HPI; No chills, No fever EENTM: No Blurred Vision, No Ear Drainage, No Ear Pain, No Nose Congestion, No Nose Pain Respiratory: See HPI; Denies Cough Cardiovascular: See HPI, Lightheadedness Gastrointestinal: See HPI Genitourinary: No Symptoms Reported Musculoskeletal: no symptoms reported Skin: No rash Psychiatric/Neurological: Anxiety; Denies Headache, Denies Numbness, Denies Paresthesia, Denies Tingling, Denies Weakness Endocrine: No Symptoms Reported Hematologic/Lymphatic: Denies Blood Clots Past [id number] Hx Patient Social History Tobacco Use?: Yes Tobacco type used: Cigarettes Alcohol Use?: Yes Alcohol type: Beer Alcohol Frequency: Daily Seasonal Allergies Seasonal Allergies: No Past Medical History Surgery/Hospitalization HX: appendectomy, anxiety Surgeries: Yes Appendectomy, Ear Surgery, Eye Surgery, Orthopedic Respiratory: No Currently Using CPAP: No Currently Using BIPAP: No Cardiac: No Neurological: No Genitourinary: No Gastrointestinal: No Musculoskeletal: No Endocrine: No HEENT: No Cancer: No Psychosocial: No Integumentary: No Blood Disorders: No Family Medical History Other Conditions/Hx Physical Exam Vital Signs Vital Signs - First Documented 09/18/22 21:02 Temp 37.3 Pulse 115 Resp 18 B/P (MAP) 180/69 (106) Pulse Ox 97 O2 Delivery Room Air Capillary Refill : Height, Weight, BMI Height: '" Weight: lbs. oz. kg; 28.54 BMI Method: General Appearance: No Apparent Distress, WD/WN HEENT: PERRL/EOMI, Pharynx Normal, Moist Mucous Membranes Neck: Full Range of Motion, Normal Inspection, Non Tender, Supple Respiratory: Chest Non Tender, Lungs Clear, Normal Breath Sounds, No Accessory Muscle Use, No Respiratory Distress Cardiovascular: No JVD, No Murmur, Normal Peripheral Pulses, Tachycardia Gastrointestinal: Normal Bowel Sounds, No Pulsatile Mass, Non Tender, Soft Rectal: Deferred Extremity: Normal Capillary Refill, Normal Inspection, Normal Range of Motion, No Pedal Edema Neurologic/Psychiatric: Alert, Oriented x3, beater and pulper feeder II-XII Norm as Tested Skin: Normal Color, Warm/Dry Progress/Results/Core Measures Results/Orders Lab Results Laboratory Tests Test 09/18/22 21:14 09/18/22 21:17 Range/Units White Blood Count 11.6 H 4.3-11.0 10^3/uL Red Blood Count 5.24 4.30-5.52 10^6/uL Hemoglobin 16.1 13.3-17.7 g/dL Hematocrit 44 40-54 % Mean Corpuscular Volume 84 80-99 fL Mean Corpuscular Hemoglobin 31 25-34 pg Mean Corpuscular Hemoglobin Concent 37 H 32-36 g/dL Red Cell Distribution Width 11.5 10.0-14.5 % Platelet Count 322 130-400 10^3/uL Mean Platelet Volume 9.6 9.0-12.2 fL Immature Granulocyte % (Auto) 0 % Neutrophils (%) (Auto) 57 42-75 % Lymphocytes (%) (Auto) 33 12-44 % Monocytes (%) (Auto) 9 0-12 % Eosinophils (%) (Auto) 1 0-10 % Basophils (%) (Auto) 0 0-10 % Neutrophils # (Auto) 6.6 1.8-7.8 10^3/uL Lymphocytes # (Auto) 3.9 1.0-4.0 10^3/uL Monocytes # (Auto) 1.0 0.0-1.0 10^3/uL Eosinophils # (Auto) 0.1 0.0-0.3 10^3/uL Basophils # (Auto) 0.0 0.0-0.1 10^3/uL Immature Granulocyte # (Auto) 0.1 0.0-0.1 10^3/uL Prothrombin Time 13.2 12.2-14.7 SEC INR Comment 1.0 0.8-1.4 Activated Partial Thromboplast Time 30 24-35 SEC Sodium Level 141 135-145 MMOL/L Potassium Level 3.6 3.6-5.0 MMOL/L Chloride Level 102 98-107 MMOL/L Carbon Dioxide Level 24 21-32 MMOL/L Anion Gap 15 H 5-14 MMOL/L Blood Urea Nitrogen 9 7-18 MG/DL Creatinine 0.82 0.60-1.30 MG/DL Estimat Glomerular Filtration Rate 127 BUN/Creatinine Ratio 11 Glucose Level 104 70-105 MG/DL Calcium Level 9.6 8.5-10.1 MG/DL Corrected Calcium 8.5-10.1 MG/DL Magnesium Level 2.0 1.6-2.4 MG/DL Total Bilirubin 0.4 0.1-1.0 MG/DL Aspartate Amino Transf (AST/SGOT) 29 5-34 U/L Alanine Aminotransferase (ALT/SGPT) 69 H 0-55 U/L Alkaline Phosphatase 107 40-136 U/L Troponin I < 0.30 <0.30 NG/ML Pro-B-Type Natriuretic Peptide 7.0 <125.0 PG/ML Total Protein 8.5 H 6.4-8.2 GM/DL Albumin 5.1 H 3.2-4.5 GM/DL Lipase 16 8-78 U/L Serum Alcohol 33 H <10 MG/DL Urine Color YELLOW Urine Clarity CLEAR Urine pH 6.5 5-9 Urine Specific [place] 1.010 L 1.016-1.022 Urine Protein NEGATIVE NEGATIVE Urine Glucose (UA) NEGATIVE NEGATIVE Urine Ketones NEGATIVE NEGATIVE Urine Nitrite NEGATIVE NEGATIVE Urine Bilirubin NEGATIVE NEGATIVE Urine Urobilinogen 0.2 < = 1.0 MG/DL Urine Leukocyte Esterase NEGATIVE NEGATIVE Urine RBC (Auto) TRACE-I H NEGATIVE Urine RBC 5-10 H /HPF Urine WBC RARE /HPF Urine Squamous Epithelial Cells NONE /HPF Urine Crystals NONE /LPF Urine Bacteria NEGATIVE /HPF Urine Casts NONE /LPF Urine Mucus LARGE H /LPF Urine Culture Indicated NO Urine Opiates Screen NEGATIVE NEGATIVE Urine Oxycodone Screen NEGATIVE NEGATIVE Urine Methadone Screen NEGATIVE NEGATIVE Urine Propoxyphene Screen NEGATIVE NEGATIVE Urine Barbiturates Screen NEGATIVE NEGATIVE Ur Tricyclic Antidepressants Screen NEGATIVE NEGATIVE Urine Phencyclidine Screen NEGATIVE NEGATIVE Urine Amphetamines Screen NEGATIVE NEGATIVE Urine Methamphetamines Screen NEGATIVE NEGATIVE Urine Benzodiazepines Screen NEGATIVE NEGATIVE Urine Cocaine Screen NEGATIVE NEGATIVE Urine Cannabinoids Screen NEGATIVE NEGATIVE My Orders Orders - DEJA MOREIRA MD Cbc With Automated Diff (09/18/22 21:09) Magnesium (09/18/22 21:09) Chest 1 View Ap/Pa Only (09/18/22 21:09) Ekg Tracing (09/18/22 21:09) Comprehensive Metabolic Panel (09/18/22 21:09) Protime With Inr (09/18/22 21:09) Partial Thromboplastin Time (09/18/22 21:09) O2 (09/18/22 21:09) Monitor-Rhythm Ecg Trace Only (09/18/22 21:09) Ed Iv/Invasive Line Start (09/18/22 21:09) Lipase (09/18/22 21:09) Troponin I Fs (09/18/22 21:09) Probnp Fs (09/18/22 21:09) Alcohol (09/18/22 21:09) Ua Culture If Indicated (09/18/22 21:09) Drug Screen Stat (Urine) (09/18/22 21:09) Ns Iv 1000 Ml (Sodium Chloride 0.9%) (09/18/22 21:09) Hydralazine Injection (Apresoline Inject (09/18/22 21:09) Alprazolam Tablet (Xanax Tablet) (09/18/22 21:09) Lidocaine 2% Viscous 15 Ml (Xylocaine Vi (09/18/22 22:30) Antacid Suspension (Mylanta Suspension (09/18/22 22:30) Medications Given in ED Current Medications Medications Dose Ordered Sig/Richard Route Start Time Stop Time Status Last Admin Dose Admin Al Hydrox/Mg Hydrox/Simethicone 30 ml ONCE ONCE PO 09/18/22 22:30 09/18/22 22:31 DC 09/18/22 22:34 30 ML Lidocaine HCl 15 ml ONCE ONCE PO 09/18/22 22:30 09/18/22 22:31 DC 09/18/22 22:34 15 ML Vital Signs/I&O 09/18/22 09/18/22 21:02 22:37 Temp 37.3 Pulse 115 83 Resp 18 15 B/P (MAP) 180/69 (106) 143/79 Pulse Ox 97 98 O2 Delivery Room Air Room Air Progress Progress Note #1: Progress Note Potential diagnosis of untreated hypertension, anxiety, alcohol withdrawal, alcohol intoxication, substance abuse, esophagitis, gastritis, pleurisy. Placed on cardiac telemetry monitoring which showed sinus tachycardia without ectopy or ischemic changes. Obtain electrocardiogram which showed sinus tachycardia without ST elevation. There is no prior tracing for comparison. IV access to draw blood and check CBC, chemistry, cardiac enzymes, coags, lipase, alcohol. Urinalysis along with urine drug screen looking for other things that could be contributing to high blood pressure and anxiety. Administer hydralazine 10 mg IV for high blood pressure, Xanax 0.25 mg p.o. for anxiety and tachycardia. Normal saline 1 L IV fluid bolus for hydration. On my review and personal interpretation of his 1 view chest x-ray he has poor respiratory effort but no acute infiltrate or effusion. Progress Note #2: Time: 21:48 Progress Note I reviewed the radiologist report on his chest x-ray and they did not see any acute process but he had poor inspiratory effort. His CBC and chemistry did not show any acute significant abnormalities. His cardiac enzymes are normal with a troponin less than 0.3 after having over 2 hours of constant pain. His coags were normal. His alcohol level was 33. His urine drug screen was negative for all substances. His urinalysis did not show signs of infection or proteinuria. His heart rate has improved on the cardiac telemetry down into the 80s and still has a sinus rhythm. He is satting under percent on room air. His blood pressure after treatment has fluctuated from 1 30-1 60 systolic. He might require medicine for blood pressure but he is not exhibiting signs of acute coronary syndrome or myocardial infarction tonight. His blood pressures have improved with rest and medication. Will defer medication to his primary care provider and have him contact Dr. Solorio tomorrow about follow-up for his blood pressure. In the meantime we will give him education about a DASH diet and ways to help lower his blood pressure. Encourage fluids and hydration as he may have been slightly dehydrated on arrival to the ED contributing to his slight tachycardia. He did report a sharp pain now instead of the pressure he was feeling before so will give GI cocktail. Reviewed with him that after 2 hours of constant pain if this was myocardial infarction or ischemic disease for his heart he should have an eleated Troponin by now. His blood pressure and heart rate are improved. His BP is not elevated to the point that I would start medicine from the ED. He states he has an appointment Monday with Dr. Solorio to follow up on Buspirone so will have him discuss the BP with him and see if he wants to do any medicine or how he wants to proceed with management of the elevated blood pressure and heart rate. In meantime, drink more fluids and follow a DASH diet. Use over the counter Famotidine or Omeprazole for possible gastritis. Initial ECG Impression Date: Sep 18, 2022 Initial ECG Impression Time: 21:10 Initial ECG Rate: 106 Initial ECG Rhythm: S.Tach Initial ECG Comparisson: No Previous ECG Available Comment Based on my personal interpretation and review his electrocardiogram shows sinus tachycardia with a heart rate of 106 bpm. AL interval [address] elevation. QT interval 351 ms with a QTc interval 413 ms. There is no prior tracing available for comparison. Diagnostic Imaging Diagonstic Imaging: Xray Plain Films/CT/US/NM/MRI: chest Comments [facility] [place], [place] NAME: [facility] REC#: [id number] PT STATUS: REG ER : 2000 PHYSICIAN: DEJA MOREIRA MD ADMIT DATE: 09/18/22/ER FS Draft Date of Exam:09/18/22 CHEST 1 VIEW AP/PA ONLY INDICATION: Chest pain, high blood pressure. TECHNIQUE: Single view chest 9:12 PM. CORRELATION STUDY: None. FINDINGS: Limited depth of inspiration resulting in accentuation of the heart size, mediastinum and vasculature, likely within normal limits. The lungs are clear with no consolidating infiltrate. There is no significant effusion or pneumothorax. IMPRESSION: Negative appearing single view chest. Dictated on workstation # [id number] Dict: 09/18/222122 Trans: 09/18/222130 [facility] [id number] Interpreted by: GREG NAPIER DO Electronically signed by: Reviewed: Reviewed by Me Departure Impression Primary Impression: Elevated heart rate with elevated blood pressure without diagnosis of hypertension Additional Impressions: Tachycardia Atypical chest pain Disposition: HOME, SELF-CARE Condition: Stable Departure-Patient Inst. Decision time for Depature: 22:25 Referrals: ROSITA SOLORIO MD (PCP) Primary Care Physician NO,LOCAL PHYSICIAN (Family) Primary Care Physician Patient Instructions: High Blood Pressure ED, Chest Pain, Adult ED, Lowering Your Risk of High Blood Pressure, DASH Diet Add. Discharge Instructions: Stay well hydrated and drink plenty of water and electrolyte drinks. Continue taking your regular medicine from Dr. Solorio. Call Dr. Solorio in the morning to let him know you were seen and your blood pressure has been running high so he could know when you are seen on Monday and discuss possible blood pressure medicines or treatments. Try to eat a heart healthy diet such as the DASH diet to help lower your blood pressure and risk for heart disease. Consider taking Famotidine (Pepcid) or Omeprazole (Prilosec) over the counter to help with acid as reflux and gastritis may be contributing to your chest pains All discharge instructions reviewed with patient and/or family. Voiced und erstanding. DEJA MOREIRA MD Sep 18, 2022 21:44
[2022-09-18] MEDS ORDERED: LIDOCAINE 2% VISCOUS 15 ML UDC PO ONE (22:30)
[2022-09-18] MEDS ORDERED: ANTACID SUSP 30 ML UDC (MYLANTA) PO ONE (22:30)
[2022-09-18 22:37] VITALS: BP 143/79
== END 2022-09-18 22:38 | disposition home or self-care (01) ==
LOC: EDUNIT# 21:00 → ER FS 21:05
DX: R03.0 Elevated blood-pressure reading, without diagnosis of hypertension (principal); R00.0 Tachycardia, unspecified; R07.89 Other chest pain; F17.210 Nicotine dependence, cigarettes, uncomplicated; Z28.310 Unvaccinated for COVID-19
CPT/HCPCS: 36415; 71045; 80053; 80306; 81000; 83690; 83735; 83880; 84484; 85025; 85610; 85730; 93005; 93041; 99284; G0480; 80320